=== PATIENT | female | born 1985 | race Caucasian/White ===

== ENCOUNTER 2016-10-30 07:25 | Observation (INO) | payer OTHER ==
--- NOTE | 2016-10-30 07:58 | OBPROG ---
OBG Progress Note Assessment/Plan: Assessment: cat 1 fhr reactive reassuring nst before discharge denies contractions denies pain feeling positive movement us cephalic consult dr. kurtis crook discharge to home with instructions Plan:poc discharge to home with instructions wednesday in the office 10/30/16 07:56 10/30/16 07:58 Subjective: Doing well. Denies difficulties. Feeling positive movement. denies contractions FHR (bpm): 135 FHR Pattern Variability: Moderate FHR Category: 1 Membranes: Intact ICD10 Worksheet Patient Problems: Problems Problem Status Onset Active labor at term Acute Normal spontaneous vaginal delivery Acute
[2016-10-30] MEDS ORDERED: TERBUTALINE SULFATE 1 MG/ML VIAL IV PRN (07:59)
[2016-10-30] MEDS ORDERED: LR 1,000 ML IV PRN (07:59)
--- NOTE | 2016-10-30 08:39 | GHP ---
DATE OF ADMISSION: 10/30/2016 Patient to Labor and Delivery for a version. With last visit patient transverse. The patient denies leaking of fluid. Denies contractions. Feeling positive movement. Has been seeing [facility] since the beginning of the . First visit was 03/27/2016. The patient is a gr avida 2, para term 1, living 1 at 31 years old with an EDC of 11/09/2016. This makes the patient 38 -4/7 weeks. MEDICAL HISTORY: Patient has a history of hypothyroid and is taking 75 mcg of levothyroxine. Histo ry of migraines. The patient also has a history of asthma with allergies, history of hypothyroid th yroid dysfunction, history of cystitis, UTIs x3 in the past. SURGERIES: Unsuccessful right arm hemangioma removal at age 2 and 4, history of pneumonia. GYNECOLOGICAL HISTORY: History of cryo x2-3 times. The patient also has a history of Mirena use in 2015. ALLERGIES: NKDA. MEDICATIONS: Levothyroxine 75 mcg as well as vitamins with DHA. LABS: The patient is O positive. Antibody negative. RPR is nonreactive. Rubella is immune. Hepa titis is negative. HIV is negative. Trio screen in 2012 was all negative. TSH on 04/01/2016 was 2. 4. Pap was negative. Gonorrhea and chlamydia were negative. Verifi was negative. 1-hour GTT was within normal limits. Patient states that she is GBS negative. PHYSICAL ASSESSMENT: GENERAL: Patient is awake, alert, oriented x3. LUNGS: Clear bilaterally. B owel sounds positive in all 4 quadrants. DTRs are 1+ bilaterally. Homans sign is negative. Clonus was negative. On ultrasound today on 10/30/2016 baby was cephalic. NST was reactive and reassurin g. IV had been placed for procedure for version. That was discontinued. The patient was given ins tructions for when to return. Followup appointment for Wednesday on 11/02/2016. The patient verbalize d understanding of reasons to return. Discussed labor precautions. Physician responsible is Dr. Romana Wright. /[id number]/MODL
== END 2016-10-30 08:00 | disposition home or self-care (01) ==
LOC: FLD 07:25
PROVIDERS: ADMIT Obstetrics & Gynecology; ATTEND Obstetrics & Gynecology
DX: Z03.79 Encounter for other suspected maternal and fetal conditions ruled out (principal)

== ENCOUNTER 2016-11-04 06:00 | Inpatient (IN) | payer OTHER ==
--- NOTE | 2016-11-03 18:29 | GHP ---
ADDENDUM TO PREVIOUSLY DICTATED REPORT Admission history and physical was dictated prior to admission and this is an addendum. SUBSEQUENT HISTORY: The patient presents with concern for variable lie. The patient is a 31-year-old, G2, P1, with an estimated due date of 11/09/2016. She has had a variable lie on the last several visits and presented for a version due to a breech presentation last week, at which point, she had spontaneously verted to vertex. The patient was noted yesterday in the office, on 11/03/2016 , again to have flipped to breech lie and was set up for a potential version today, with subsequent induction versus a if the baby would not vert. Upon presentation to Labor and Delivery today, the baby has verted to a cephalic presentation, as noted by ultrasound. An abdominal binder was placed on the patient's abdomen to help maintain that position. The plan will be now to do an induction with Pitocin. For additional information on the H and P, see the prior dictated H and P from Dr. Kristi Perales. CURRENT ADMISSION EXAMINATION: VITAL SIGNS: The patient's vital signs are all normal and she is afebrile. See nursing documentation for full details. heart tones show a category 1 tracing with a baseline in the 120s, with moderate variability and accelerations. There are no decelerations noted. The patient is not having contractions at this time. IMAGING: An additional confirmation ultrasound was just performed and the baby is still in the cephalic presentation. We will begin Pitocin per protocol. ASSESSMENT: G2, P1, at 39 weeks and 2 days, now in a vertex presentation. PLAN: We will begin Pitocin and AROM when able. Per patient, the last cervical exam revealed the patient was 1 cm and 50% effaced. After the patient has been on Pitocin, we will repeat exam and AROM when able. The GBS culture was negative. /[id number] [facility] ORIGINAL REPORT DATE OF ADMISSION: 11/04/2016 ADMITTING DIAGNOSIS: Intrauterine at 39-2/7 weeks' gestation with breech presentation/unstable lie. HISTORY OF PRESENT ILLNESS: The patient is a 31-year-old, 2, para 1-0-0 -1, with a last menstrual period of 02/02/2016 and EDC of 11/09/2016, which was confirmed by an 8-week ultrasound. She has had good care at [facility] since registration at 8 weeks' gestation. Her risk factors include hypothyroidism. She has been followed closely with her TSH and her meds have been optimized. History of migraines and a history of cryotherapy to her cervix. No other risk factors. She has progressed to 39 weeks. At 38 weeks, baby was found to be in transverse presentation by Shravan and confirmed by ultrasound. We reviewed options and patient elected to have an attempted external cephalic version. She was scheduled for October 30. On presentation for her version, the baby had spontaneously turned and was in cephalic presentation, and the version was canceled. Today, on followup OB visit at 39-1/7 weeks' gestation baby is now in breech presentation, confirmed by ultrasound juve breech. We discussed treatment options again because of the baby's unstable lie. Patient desires to have a vaginal delivery if possible and she is concerned about going into labor with the baby in breech presentation. We offered to admit tomorrow at 39 and 2 for an attempted external cephalic version. If the version is successful, she will have an induction of labor immediately. If the version is unsuccessful, she will have a , and she is in agreement with this. The patient desires the external cephalic version to be done with an epidural for pain control and that will be performed before the procedure. PAST OBSTETRICAL HISTORY: In March of 2014, she had a viable female, 7 pounds even, after a 4 hour second stage,d no complications, and this is her second . PAST GYNECOLOGICAL HISTORY: She had abnormal Pap in college and she was treated with cryotherapy. Normal Paps have been since. PAST MEDICAL HISTORY: History of hypothyroidism and a history of migraines. SURGICAL HISTORY: She had a right arm hemangioma removed as a child. No other surgeries. ALLERGIES: No known drug allergies. CURRENT MEDS: Include levothyroxine 75 mcg daily and this has remained stable through her , and vitamins. She is not anemic. She is not on iron. LAB: She is O-positive, antibody negative, RPR nonreactive. Rubella immune. Hepatitis negative. HIV negative. Cystic fibrosis, SMA, and fragile X negative. Pap normal. Gonorrhea and chlamydia normal. Verifi was normal. AFP was normal. One-hour GTT 89. GBS was negative. SOCIAL HISTORY: She is . She lives with her and her daughter. 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 She denies tobacco, alcohol, and drug use in . FAMILY HISTORY: Brother has rheumatoid arthritis. Patient and her mother also have hypothyroidism. Paternal grandfather of prostate cancer. Mother has a history of a TIA. Paternal uncle has epilepsy. No other. OBJECTIVE: VITAL SIGNS: Today, she is afebrile. Blood pressure is 90/58. Weight is 177, which is a 22 pound weight gain in this . GENERAL: She is a well-developed, well-nourished gravid white female, in no acute distress. LUNGS: Clear to auscultation bilaterally. HEART: Regular rate and rhythm. No murmurs. ABDOMEN: Gravid. Fundal height is 36. heart tones are in the 140s and baby is in breech presentation. PELVIC: Cervix is 1 , 50%, and high. ASSESSMENT AND PLAN: A 31-year-old, 2, para 1-0-0-1, at 39-2/7 weeks' gestation with baby with unstable lie, for attempted external cephalic version. If successful, induction of labor. If unsuccessful, . Patient will be consented at the bedside for a if necessary. She understood, and understands the risks and benefits. /[id number]/MODL and [id number]/MODL, 11/04/16 CORWIN
[2016-11-04] MEDS ORDERED: OXYTOCIN/RINGERS LACTATE 1,000 ML IV PRN (06:23)
[2016-11-04] MEDS ORDERED: TERBUTALINE SULFATE 1 MG/ML VIAL IV PRN (06:23)
[2016-11-04] MEDS ORDERED: LR 1,000 ML IV PRN (06:23)
[2016-11-04 06:52] LABS: % IMMATURE GRANULYOCYTES 0.4 % (0.0-1.1); ABSOLUTE IMMATURE GRANULOCYTES 0.03 10^3/uL (0.00-0.10); ADD DIFF? NO; ADD MORPH? NO; ADD SCAN? NO; ATYPICAL LYMPHOCYTE FLAG 0 (0-99); FRAGMENT RBC FLAG 0 (0-99); HEMATOCRIT 34.7 % (38.0-47.0); HEMOGLOBIN 12.2 g/dL (12.6-16.3); LEFT SHIFT FLG 0 (0-99); LIPEMIA HEMOLYSIS FLAG 90 (0-99); MEAN CELL HEMOGLOBIN 31.6 pg (27.9-34.1); MEAN CELL HEMOGLOBIN CONCENTR. 35.2 g/dL (32.4-36.7); MEAN CELL VOLUME 89.9 fL (81.5-99.8); MEAN PLATELET VOLUME 9.6 fL (8.7-11.7); PLATELET CLUMPS FLAG 0 (0-99); PLATELET COUNT 229 10^3/uL (150-400); RED BLOOD CELL COUNT 3.86 10^6/uL (4.18-5.33); RED CELL DISTRIBUTION WIDTH 12.8 % (11.5-15.2)
[2016-11-04] MEDS ORDERED: AMMONIA AROMATIC 1 EACH AMP IH ONE (07:51)
[2016-11-04] MEDS ORDERED: LIDOCAINE 1% 30 ML SDV ONE (07:51)
[2016-11-04] MEDS ORDERED: TERBUTALINE SULFATE 1 MG/ML VIAL ONE (07:52)
[2016-11-04] MEDS ORDERED: OXYTOCIN 10 UNIT/ML VIAL ONE (07:52)
[2016-11-04] MEDS ORDERED: MISOPROSTOL 200 MCG TAB ONE (07:52)
[2016-11-04] MEDS ORDERED: OXYTOCIN/RINGERS LACTATE 30 UNIT/500 ML BAG IV ONE (07:53)
[2016-11-04] MEDS ORDERED: LR 500 ML IV PRN (08:46)
[2016-11-04] MEDS ORDERED: OXYTOCIN/RINGERS LACTATE 500 ML IV SCH (09:00)
--- NOTE | 2016-11-04 13:42 | OBPROG ---
OBG Progress Note Assessment/Plan: Assessment: 31y/o IUP @39w2d Variable lie, now cephalic Hx hypothyroid, on Levo 75mcg Plan: Con't pitocin per protocol Consider AROM when station lower 11/04/16 13:39 Subjective: Pt comfortable, laughing, FOB at bedside Objective: 11/04/16 06:30 Patient ABO/Rh O POSITIVE 11/04/16 06:30 - SVE Dilation (cm): 3 Effacement (%): 50 Station: -3 Current Contraction Pattern: Regular FHR (bpm): 130 (+accels) FHR Pattern Variability: Moderate FHR Category: 1 Membranes: Intact ICD10 Worksheet Patient Problems: Problems Problem Status Onset Elective induction of labor planned Acute Hx of variable lie, vertex today Acute
--- NOTE | 2016-11-04 14:39 | OBPROG ---
OBG Progress Note Assessment/Plan: Assessment: 31y/o IUP @39w2d, IOL at term Variable lie, now cephalic Hx hypothyroid, on Levo 75mcg Plan: Con't pitocin per protocol AROM, clear @1433 11/04/16 13:39 11/04/16 14:37 Subjective: Pt comfortable but desires epidural if CTXs get stronger Objective: 11/04/16 06:30 Patient ABO/Rh O POSITIVE 11/04/16 06:30 - SVE Dilation (cm): 3 Effacement (%): 80 Station: -1 Current Contraction Pattern: Regular (q 2-3 min on pitocin 14mU) FHR (bpm): 130 FHR Pattern Variability: Moderate FHR Category: 1 (+accels) Membranes: AROM Amniotic Fluid Color: Clear ICD10 Worksheet Patient Problems: Problems Problem Status Onset Elective induction of labor planned Acute Hx of variable lie, vertex today Acute
[2016-11-04] MEDS ORDERED: fentaNYL 100 MCG/2 ML INJ ONE (14:53)
[2016-11-04] MEDS ORDERED: BUPIVACAINE 0.25% 30 ML SDV ONE (14:53)
[2016-11-04] MEDS ORDERED: fentaNYL 2MCG/ML/BUP 0.1% RTU 100 ML BAG EP ONE (14:53)
[2016-11-04] MEDS ORDERED: PHENYLEPHRINE HCL 100 MCG/ML SYR ONE (14:53)
[2016-11-04] MEDS ORDERED: PHENYLEPHRINE HCL 100 MCG/ML SYR IVP PRN (16:43)
[2016-11-04] MEDS ORDERED: ONDANSETRON 4 MG/2 ML VIAL IVP PRN (16:43)
--- NOTE | 2016-11-04 16:46 | POSTANESTH ---
Post Anesthetic Evaluation Cardiovascular Status: Normal, Stable Respiratory Status: Normal, Stable, Similar to Pre-op Cond. Level of Consciousness/Mental Status: Can Participate in Eval, Alert and Oriented Pain Control: Adequate, Prn Tx Ordered Nausea/Vomiting Control: Adequate, Prn Tx Ordered Complications Possibly Related to Anesthesia: None Noted (Tolerated CSE well, stable, comfortable.)
--- NOTE | 2016-11-04 16:49 | PREANESOB ---
Obstetric Pre-Anesthesia Info - General Info Proposed Procedure: Labor and delivery with pitocin. : 2 Para: 1 WBD: 39 - Info Status: Full Term Monitors: External FHR Baseline (bpm): 125 FHR Pattern: Reassuring - Labor Status Cervical Dilation per last OB SVE: 3 Station per last OB SVE: -1 Amniotic Fluid Color: Clear Pitocin: In Use PIH: No Magnesium Sulfate in Use: No Indications for Labor Analgesia: Induction of Labor, Pain Control Labor Epidural: Proposed Anesthesia ROS: Prior labor epidural. Takes levothyroxine and vitamins. History of migraines Allergies/Adverse Reactions: Allergy/AdvReac Type Severity Reaction Status Date / Time No Known Allergies Allergy Unverified 03/14/14 05:36 Home Medications: Medication Instructions Recorded Vit27&Calcium/Iron/FA 1 tab PO DAILY 03/14/14 [] Docusate Sodium [Colace 100 MG (*)] 300 mg PO BID 11/04/16 Levothyroxine [Synthroid 75 mcg 75 mcg PO DAILY06 11/04/16 (*)] Visit Medications: Generic Name Dose Route Start Last Admin Trade Name Freq PRN Reason Stop Dose Admin Diphenhydramine HCl 25 - 50 mg 11/04/16 16:43 Benadryl Injection IVP 05/03/17 16:42 Q6HRS PRN Itching Lactated Ringer's 1,000 mls @ 0 mls/hr 11/04/16 06:23 11/04/16 08:08 Lr IV 05/03/17 06:22 1,000 mls PRN PRN Administration SEE PROTOCOL CONDITIONS Protocol Per Protocol Oxytocin/Lactated Ringer's 1,000 mls @ 150 mls/hr 11/04/16 06:23 Pitocin 20 Units/Lr (Premix) IV PRN PRN Post- bleeding Lactated Ringer's 500 mls @ 500 mls/hr 11/04/16 08:46 Lr IV PRN PRN Maternal Hypotension Oxytocin/Lactated Ringer's 500 mls @ 0 mls/hr 11/04/16 09:00 11/04/16 08:08 Pitocin 30 Units/Lr (Premix) IV 05/03/17 08:59 500 mls CONT CHRISTIANNE Administration Protocol Per Protocol Fentanyl/Bupivacaine HCl 100 mls @ 0 mls/hr 11/04/16 17:00 Fentanyl/Bupivacaine/Ns 2 Mcg/Ml 0.1% (Premix EP 11/14/16 16:59 CONT CHRISTIANNE Protocol As Directed Lactated Ringer's 500 mls @ 0 mls/hr 11/04/16 17:00 Lr IV 05/03/17 16:59 CONT CHRISTIANNE As Directed Ibuprofen 600 mg 11/04/16 06:23 Motrin PO 05/03/17 06:22 Q6HRS PRN post , inflammation Levothyroxine Sodium 75 mcg 11/05/16 06:00 Synthroid PO 05/04/17 05:59 DAILY AT 6AM CHRISTIANNE Ondansetron HCl 4 mg 11/04/16 16:43 Zofran IVP 05/03/17 16:42 Q4HRS PRN Nausea/Vomiting, Can't Take PO Phenylephrine HCl 100 mcg 11/04/16 16:43 Elmer-Synephrine IVP 05/03/17 16:42 .Q2M PRN Hypotension Terbutaline Sulfate 0.25 mg 11/04/16 06:23 Brethine IV 05/03/17 06:22 ONCE PRN Tachysystole Discontinued Medications Generic Name Dose Route Start Last Admin Trade Name Freq PRN Reason Stop Dose Admin Ammonia (Aromatic Spirit) Confirm 11/04/16 07:51 Ammonia Aromatic Administered 11/04/16 07:52 Dose 1 each IH .STK-MED ONE Bupivacaine HCl Confirm 11/04/16 14:53 Sensorcaine 0.25% Sdv Administered 11/04/16 14:54 Dose 30 ml .ROUTE .STK-MED ONE Fentanyl Confirm 11/04/16 14:53 Sublimaze Administered 11/04/16 14:54 Dose 100 mcg .ROUTE .STK-MED ONE Fentanyl/Bupivacaine HCl Confirm 11/04/16 14:53 Fentanyl/Bupivacaine/Ns 2 Mcg/Ml 0.1% (Premix Administered 11/04/16 14:54 Dose 100 ml EP .STK-MED ONE Lidocaine HCl Confirm 11/04/16 07:51 Lidocaine Hcl 1% Administered 11/04/16 07:52 Dose 30 ml .ROUTE .STK-MED ONE Misoprostol Confirm 11/04/16 07:52 Cytotec Administered 11/04/16 07:53 Dose 1,000 mcg .ROUTE .STK-MED ONE Oxytocin Confirm 11/04/16 07:52 Pitocin Administered 11/04/16 07:53 Dose 30 unit .ROUTE .STK-MED ONE Oxytocin/Lactated Ringer's Confirm 11/04/16 07:53 Pitocin 30 Units/Lr (Premix) Administered 11/04/16 07:54 Dose 30 unit IV .STK-MED ONE Phenylephrine HCl Confirm 11/04/16 14:53 Elmer-Synephrine Administered 11/04/16 14:54 Dose 1,000 mcg .ROUTE .STK-MED ONE Terbutaline Sulfate Confirm 11/04/16 07:52 Brethine Administered 11/04/16 07:53 Dose 1 mg .ROUTE .STK-MED ONE - Anesthesia History Response to Local Anesthetics: Normal Anesthesia & Operative History: No Prior Problems - Social History Substance Use/Abuse: Denies - Focused Exam Blood Pressure: 114/74 Heart Rate: 67 Height/Weight (Nursing): Height 170.18 cm Weight 78.018 kg Physical Exam: Within normal limits. ASA Status: II Labs: 11/04/16 06:30 Patient ABO/Rh O POSITIVE 11/04/16 06:30 - Plan Anesthetic Plan: CSE Consent Signed and on Chart: Yes Patient/Guardian Understands and Agrees to Plan: Yes
[2016-11-04] MEDS ORDERED: fentaNYL 2MCG/ML/BUP 0.1% RTU 100 ML EP SCH (17:00)
[2016-11-04] MEDS ORDERED: LR 500 ML IV SCH (17:00)
[2016-11-04] MEDS ORDERED: DOCUSATE SODIUM 100 MG CAP PO PRN (18:31)
[2016-11-04] MEDS ORDERED: HYDROCODONE/APAP 5/325 TAB PO PRN (18:31)
[2016-11-04] MEDS ORDERED: ACETAMINOPHEN 325 MG TAB PO PRN (18:31)
--- NOTE | 2016-11-04 18:38 | OBPROC ---
- Labor and Delivery Onset of Contractions Date: 11/04/16 Onset of Contractions Time: 14:33 Onset of Contractions Type: Induced Rupture of Membranes Date: 11/04/16 Rupture of Membranes Time: 14:33 Rupture of Membranes Type: Artificial Amniotic Fluid Color: Clear Dilation Complete Time: 17:40 Delivery Type: Spontaneous Placenta Delivery Date: 11/04/16 Placenta Delivery Time: 17:57 Episiotomy/Laceration: 1st Degree, Midline, Perineal Repair: 3-0, Vicryl EBL: 300 Complications: None - Medications Labor Augmentation/Induction Meds Used: Pitocin Labor Augmentation/Induction Indication: Other (Specify) (variable lie --> vertex today) Anesthesia: Epidural - [place] Info Infant A Delivery Date: 11/04/16 Delivery Time: 17:52 Sex of Infant: Female Score (1 Min): 9 Score (5 Min): 9
[2016-11-04] MEDS: IBUPROFEN 600 MG TAB PO PRN (18:45)
[2016-11-04 21:29] VITALS: RESP 16
[2016-11-05] MEDS: IBUPROFEN 600 MG TAB PO PRN ×3 (02:55→15:05)
[2016-11-05] MEDS ORDERED: LEVOTHYROXINE 75 MCG TAB PO SCH (06:00)
--- NOTE | 2016-11-05 07:28 | OBPROG ---
OBG Progress Note Assessment/Plan: Assessment: s/p PPD # 1 - pt is stable Plan: Continue routine pp care Plan for d/c home if baby is discharged home Instructions reviewed with pt No Rx given Cont PNV Pelvic rest RTC in 6 weeks for pp visit 11/05/16 07:26 Subjective: Pt seen and examined. Doing well with no complaints. Some cramping, relief with Motrin. Moderate lochia. without difficulty. She would like to go home today. Objective: 11/04/16 06:30 Patient ABO/Rh O POSITIVE 11/04/16 06:30 Temp Pulse Resp BP Pulse Ox 36.6 C 76 16 89/54 L 96 11/04/16 21:28 11/04/16 21:28 11/04/16 21:28 11/04/16 21:28 11/04/16 21:28 Uterine Position/Fundal Height: Umbilicus -2 Uterine Tone: Firm - Physical Exam General Appearance: WD/WN, alert, no apparent distress Respiratory: lungs clear, normal breath sounds Cardiac/Chest: regular rate, rhythm Abdomen: normal bowel sounds, non-tender, soft, flatus (+) Genitourinary: laceration (intact), lochia (moderate) Extremities: non-tender, normal inspection Neuro/Psych: alert, normal mood/affect, oriented x 3 ICD10 Worksheet Patient Problems: Problems Problem Status Onset (spontaneous vaginal delivery) Acute Elective induction of labor planned Acute Hx of variable lie, vertex today Acute
[2016-11-05] MEDS ORDERED: FERROUS SULFATE 325 MG TAB PO SCH (09:00)
[2016-11-05 09:25] VITALS: BP 102/72; PULSE 78; TEMP 98.3; O2SAT 95
== END 2016-11-05 18:45 | disposition home or self-care (01) | DRG 775 ==
LOC: FLD 06:00 → FOB 20:59
PROVIDERS: ADMIT Obstetrics & Gynecology; ATTEND Obstetrics & Gynecology
DX: O32.1XX0 Maternal care for breech presentation, not applicable or unspecified (principal); Z37.0 Single live birth; Z3A.39 39 weeks gestation of pregnancy; O99.284 Endocrine, nutritional and metabolic diseases complicating childbirth; E03.9 Hypothyroidism, unspecified; O70.0 First degree perineal laceration during delivery
CPT/HCPCS: J2370; J2590; J3010; J3105

== ENCOUNTER 2018-03-07 06:38 | Observation (INO) | payer BC ==
[2018-03-07] MEDS ORDERED: OLIVE OIL 118 ML BTL MISC ONE (07:11)
[2018-03-07] MEDS ORDERED: TERBUTALINE SULFATE 1 MG/ML VIAL IV ONE (07:11)
--- NOTE | 2018-03-07 08:03 | OBPROG ---
Labor Progress Note Assessment/Plan: Assessment: IUP at 37w2d, transverse lie Plan: will proceed with ECV, Terb prior 03/07/18 08:00 Subjective/Intrapartum Course: 03/07/18 08:02 Pt feeling fine. GFM, no ctxns, no bleeding. Disc ECV and low risks. U/S done to confirm position - transverse head to left, back superior - FHR Assessment Rosales FHR (bpm): 130 FHR Pattern Variability: Moderate FHR Category: 1 Oxytocin Orders Assessment - Pre-Induction/Augmentation Assessment Gestational Age: 37 week(s) and 2 day(s) ICD10 Worksheet Patient Problems: Problems Problem Status Onset Elective induction of labor planned Acute Hx of variable lie, vertex today Acute (spontaneous vaginal delivery) Acute
[2018-03-07 08:13] VITALS: BP 98/62
--- NOTE | 2018-03-07 08:28 | OBPROG ---
Labor Progress Note Assessment/Plan: Assessment: IUP at 37w2d, transverse lie, verted spont to vertex immed after Terb Plan: will monitor for reassurance, HR already returned to normal, d/c home 03/07/18 08:00 03/07/18 08:25 Subjective/Intrapartum Course: 03/07/18 08:02 Pt feeling fine. GFM, no ctxns, no bleeding. Disc ECV and low risks. U/S done to confirm position - transverse head to left, back superior 03/07/18 08:26 Pt given Terb and immed thereafter u/s done and baby vertex. No ECV needed. d/ c home Objective: Temp Pulse Resp BP Pulse Ox 74 98/62 L 03/07/18 08:11 03/07/18 08:11 - SVE Membranes: Intact - Contraction Pattern Assessment Current Contraction Pattern: Other (Specify) (none) - FHR Assessment Rosales FHR (bpm): 140 FHR Pattern Variability: Moderate FHR Category: 1 Oxytocin Orders Assessment - Pre-Induction/Augmentation Assessment Gestational Age: 37 week(s) and 2 day(s) ICD10 Worksheet Patient Problems: Problems Problem Status Onset Transverse lie of fetus Acute
== END 2018-03-07 08:35 | disposition home or self-care (01) ==
LOC: FOBOP 06:38 → FLD 07:54
PROVIDERS: ADMIT Obstetrics & Gynecology; ATTEND Obstetrics & Gynecology
DX: O32.2XX0 Maternal care for transverse and oblique lie, not applicable or unspecified (principal); Z3A.37 37 weeks gestation of pregnancy
CPT/HCPCS: 59025; 76815; G0378; J3105